=== PATIENT | male | born 1985 | race Two or more races ===

== ENCOUNTER 2016-07-28 13:41 | Inpatient (IN) | payer OTHER ==
--- NOTE | ~2016-07-28 | CT4 ---
[facility] A Service of [facility] RADIOLOGY TEXT RESULTS PATIENT: SULTAN BASIM LOCATION: SED : 85 UNIT #: [id number] AGE: [address]: Beth Keyes MD SEX: M ORDER DR: [id number] [address] [address] [id number] E MR#: [id number] Acc #: [id number] NAME: SULTAN BASIM : 1985 SEX: M STUDY DATE/TIME: 07/28/2016 16:17 UNIT: SED ROOM: STUDY DESCRIPTION: CT Abd and Pelv Wo Cont Attending Physician: Beth Keyes M.D. Ordering Physician: Beth Keyes M.D. MEDICAL IMAGING REPORT This report is preliminary unless electronic signature is present. EXAM CT abdomen and pelvis, noncontrast, 07/28/2016 HISTORY 30-year-old male in the ED complaining of new onset right flank pain radiating into the right scrotum beginning earlier today. He reports a history of kidney stones. COMPARISON STUDIES No prior imaging here. TECHNIQUE This CT exam was performed with one or more of the following radiation dose reduction techniques: automatic exposure control, adjustment of mA and/or kV according to patient size, and iterative reconstruction. FINDINGS ABDOMEN: There is an obstructing right distal ureter calculus at the mid-pelvis level just beyond the iliac vessel crossing measuring up to 7 mm in size. This causes moderately severe right hydronephrosis. There are several tiny non-obstructing calculi scattered throughout the medullary portions of the left kidney and right lower kidney, most of which measure only 1 mm in size. Liver, pancreas and spleen are negative. Non-distended gallbladder. No biliary ductal dilatation. Small bowel and colon are normal in caliber and appearance and the appendix is normal. PELVIS: Bladder, prostate and rectum are within normal limits. Limited lung base images are negative. [facility] A Service [facility] RADIOLOGY TEXT RESULTS PATIENT: SULTAN BASIM LOCATION: SED : 85 UNIT #: [id number] AGE: [address]: Beth Keyes MD SEX: M ORDER DR: IMPRESSION 1. Obstructing 8 mm calculus in the right lower ureter at the mid-pelvis level causing moderately severe right hydronephrosis. 2. Several tiny non-obstructing bilateral renal calculi. 3. The remainder of the exam is negative. The appendix is normal. Dictated by... Edis Caicedo M.D. THIS IS AN ELECTRONICALLY VERIFIED REPORT Edis Caicedo M.D. at 07/29/2016 10:15 AM MARQUIS/sabina TD: 07/28/2016 22:52 JOB #: [id number] MEDICAL IMAGING REPORT Page 1 of 1
[2016-07-28 15:42] LABS: URINE SOURCE CLEAN CATCH
[2016-07-28 15:44] LABS: URINE APPEARANCE CLOUDY; URINE BILIRUBIN NEG (NEG); URINE BLOOD 3+ (NEG); URINE COLOR BROWN; URINE GLUCOSE NEG (NORM); URINE KETONE NEG (NEG); URINE LEUKOCYTE ESTERASE TRACE (NEG); URINE NITRATE NEG (NEG); URINE PH 5.5 (5-8); URINE PROTEIN 2+ (NEG); URINE SPECIFIC GRAVITY >=1.030 (1.003-1.035)
[2016-07-28 15:56] LABS: BASOPHIL% 0.3 % (0-2.5); HEMATOCRIT 44.7 % (38.0-50.0); HEMOGLOBIN 15.4 gm/dL (13.0-16.0); LYMPHOCYTE# 1.2 X10e3 (1.0-3.5); MEAN CELL VOLUME 83.8 FL (83-96); MEAN CORPUSCULAR HEMOGLOBIN 28.8 PG (28-34); MEAN CORPUSCULAR HGB CONC 34.4 g/dL (30-36); MEAN PLATELET VOLUME 8.8 FL (6.5-11.5); MONOCYTE# 0.5 X10e3 (0-1.0); MONOCYTE% 3.8 % (3.0-12.0); NEUTROPHIL% 86.9 % (40-75); PLATELET COUNT 243 X10e3 (140-420); RED BLOOD COUNT 5.33 X10e (3.90-5.60); RED CELL DISTRIBUTION WIDTH 13.1 % (11.0-15.5); WHITE BLOOD COUNT 13.8 X10e3 (4.0-10.5)
[2016-07-28 16:04] LABS: MICRO INDICATED? YES
[2016-07-28 16:14] LABS: CULTURE INDICATED? YES; URINE BACTERIA NEG (NEG); URINE RBC 100-200 /[HPF] (0-2); URINE SQUAMOUS EPITHELIAL CELL OCCAS /[HPF]
[2016-07-28 16:15] LABS: URINE YEAST PRESENT
[2016-07-28 16:17] LABS: DIFF IND NO
[2016-07-28 16:20] LABS: BUN/CREATININE RATIO 10.83; CALCIUM SERUM 9.6 mg/dL (8.4-10.2); CREATININE SERUM 1.2 mg/dL (0.6-1.4); GLOM FILT RATE Estimated 80.7 mL/min (>60); POTASSIUM 4.3 mmol/L (3.5-5.1)
[2016-07-29] MEDS ORDERED: BACTRIM DS TAB1 EACH PO (12:14)
[2016-07-29] MEDS ORDERED: HYDROCODON-ACE1 EAC7 PO (12:17)
== END 2016-07-29 13:10 | disposition home or self-care (01) | DRG 694 ==
LOC: SED 13:41 → C4C 17:38 → CEDOF 17:49 → SED 17:49 → C4C 07-29 13:10
PROVIDERS: Emergency Medicine
PROC: 0T768DZ Dilation of Right Ureter with Intraluminal Device, Via Natural or Artificial Opening Endoscopic (ICD-10-PCS; principal; 2016-07-29)
PROC: BT1DYZZ Fluoroscopy of Right Kidney, Ureter and Bladder using Other Contrast (ICD-10-PCS; 2016-07-29)
DX: N13.2 Hydronephrosis with renal and ureteral calculous obstruction (principal)
CPT/HCPCS: 36415; 74176; 80048; 80053; 81003; 85025; 87086; 96374; 96375; 99285; C2617; J0690; J1170; J1885; J2250; J3010

== ENCOUNTER → 2016-08-15 | Day surgery (SDC) | payer OTHER ==
[~2016-08-15] MED LIST: BACTRIM DS TAB1 EACH PO; HYDROCODON-ACE1 EAC7 PO
--- NOTE | ~2016-08-15 | OR ---
Unit #: [id number] #: [id number] Patient: SULTAN BASIM [id number] [address] [address] [id number] O MR#: [id number] NAME: SULTAN BASIM ROOM: Date of Procedure: 08/15/2016 Admission Date: 08/15/2016 Surgeon: Bienvenido Marino M.D. : 1985 Attending Physician: Bienvenido Marino M.D. OPERATIVE REPORT PREOPERATIVE DIAGNOSIS Right ureteral stone. POSTOPERATIVE DIAGNOSIS Right ureteral stone. PROCEDURES PERFORMED Right ureteroscopy with laser lithotripsy, basket extraction, and stent replacement. ANESTHESIA General. DESCRIPTION OF PROCEDURE After informed consent, he was taken to the operating room, placed under general anesthetic, and positioned in lithotomy. His penis and perineum were prepped and draped in the usual sterile fashion. Cystoscopy was performed showing no stones, no tumors and the entire bladder was inspected. The stent was exiting the right ureter. A grasper was used and the stent was pulled out to the meatus. A Sensor wire was placed inside the stent and the stent was removed. Rigid ureteroscopy was performed alongside the stent. The stone was encountered in the mid ureter. Using a holmium laser, the stone was broken up into smaller pieces. The fragments were then extracted without difficulty. Next, repeat ureteroscopy showed no other stone fragments. Some of the fragments were sent for analysis. The ureter was then stented. A 5 x 26 stent was placed under fluoroscopy and direct vision without difficulty. The patient had the string left attached on the stent. He will return to see me in one week for stent removal. He tolerated the procedure well. All counts were correct at the end of the procedure. Dictated by... Iain MartinB/modl TD: 08/15/2016 16:46 JOB #: [id number] Unit #: [id number] #: [id number] Patient: SULTAN BASIM OPERATIVE REPORT Page 1 of 1 X Bienvenido Marino MD X PROCEDURE OPERATIVE NOTE
== END | disposition home or self-care (01) ==
LOC: CSUR 11:39
DX: N20.1 Calculus of ureter (principal); E11.9 Type 2 diabetes mellitus without complications; Z87.442 Personal history of urinary calculi
CPT/HCPCS: 88300; C2617; J0690; J2250; J2405; J3010